=== PATIENT | male | born 1965 | race Caucasian/White ===

== ENCOUNTER 2020-09-23 21:24 | Emergency (ER) | payer OTHER, SELFPAY ==
--- NOTE | ~2020-09-23 | CT_ITS ---
EXAMINATION: CTA chest PE protocol DATE: 09/23/2020 22:54 INDICATION: Right-sided chest and rib pain that radiates to the abdomen TECHNIQUE: Computed tomography (CT) pulmonary angiogram of the chest was performed with 100 mL Omnipa que-350 intravenous contrast. Additional 3D reconstructions utilizing coronal maximum intensity proje ction (MIP) were performed. Automated exposure control and iterative reconstruction technique were em ployed. The dose-length product was 869.48 mGy-cm. COMPARISON: None FINDINGS: Excellent contrast opacification of the pulmonary arteries. There is mild streak artifact from dense contrast in the superior vena cava and right atrium. Mild scattered respiratory motion artifact which does not significantly limit evaluation. No pulmonary embolism. Normal variant azygos lobe and fissu re. Mosaic attenuation throughout the lungs consistent with atelectasis and scattered small regions o f subsegmental air trapping resulting from expiratory phase of imaging as evidenced by the concave co nfiguration of the posterior wall of the trachea. No septal line thickening to suggest pulmonary anne a. Diffuse bronchial wall thickening throughout both lungs which could be seen with bronchitis or lois ctive airway disease. No pneumonia or pleural effusion. 5 mm nodule along the right major fissure wit h 4 additional 2-4 mm nodules along the right minor fissure likely representing intrafissural lymph n odes. Heart size is normal. Thoracic aorta is normal in caliber with no dissection. Right-sided predo minant diffuse thyroid enlargement consistent with goiter. Mildly prominent but still normal-sized bi lateral hilar lymph nodes which are likely reactive. No pathologically enlarged thoracic lymphadenopa thy. Diffuse hepatic steatosis with focal sparing along the gallbladder fossa. Small region of hypode nsity wall thickening at the tip of the fundus of the gallbladder most consistent with focal adenomyo matosis. Mild thoracic spondylosis. IMPRESSION: 1. No pulmonary embolism. 2. Mosaic attenuation in both lungs most likely related to expiratory phase of imaging and scattered subsegmental air trapping which could be due to small airway disease 3. Diffuse bronchial wall thickening consistent with bronchitis or reactive airway disease. 4. Mild bilateral hilar lymphadenopathy as well as a few mildly prominent intrafissural lymph nodes o n the right which are likely reactive. 5. Diffuse hepatic steatosis. 6. Likely focal adenomyomatosis at the tip of the fundus of the gallbladder. 7. Goiter. Reviewed, dictated and finalized at location A. IMPRESSION: 1. No pulmonary embolism. 2. Mosaic attenuation in both lungs most likely related to expiratory phase of imaging and scattered subsegmental air trapping which could be due to small air way disease 3. Diffuse bronchial wall thickening consistent with bronchitis or reactive air way disease. 4. Mild bilateral hilar lymphadenopathy as well as a few mildly prominent intra fissural lymph nodes on the right which are likely reactive. 5. Diffuse hepatic steatosis. 6. Likely focal adenomyomatosis at the tip of the fundus of the gallbladder. 7. Goiter.
[2020-09-23 21:35] VITALS: BP 160/100; PULSE 84; RESP 24; TEMP 36.3; O2SAT 94
--- NOTE | 2020-09-23 21:49 | ECG_ITS ---
Measurements Intervals [place] Rate: 80 P: 45 DE: 145 QRS: 92 QRSD: 94 T: 63 QT: 356 QTc: 413 Interpretive Statements SINUS RHYTHM RIGHT AXIS DEVIATION INCOMPLETE RIGHT BUNDLE BRANCH BLOCK LOW QRS VOLTAGE IN PRECORDIAL LEADS BORDERLINE R WAVE PROGRESSION, ANTERIOR LEADS BORDERLINE ECG Electronically Signed On 09-24-2020 11:53:57 CDT by Beni De Guzman D.O.
[2020-09-23 22:08] LABS: Basophils Absolute Auto 0.1 K/mm3 (0.0-0.1); Basophils Percent Auto 0.6 % (0.2-1.2); Eosinophils Absolute Auto 0.9 K/mm3 (0-0.3); Eosinophils Percent Auto 7.7 % (0-4.4); Hematocrit 52.5 % (42.0-52.0); Immature Granulocyte Absolute 0.05 K/mm3 (0.00-0.031); Immature Granulocyte Percent A 0.4 % (0-0.5); Mean Corpuscular HGB Conc 34.3 g/dl (32-36); Mean Corpuscular Hemoglobin 30.8 pg (26-34); Mean Corpuscular Volume 89.7 fl (80-100); Mean Platelet Volume 8.9 fl (7.4-10.4); Monocytes Percent Auto 8.7 % (2.6-8.5); Neutrophils Absolute Auto 6.9 K/mm3 (1.3-6.7); Neutrophils Percent Auto 57.6 % (45.5-73.1); Platelet Count Result 216 k/mm3 (150-375); Red Blood Count 5.85 M/mm3 (4.6-6.20); Red Cell Distribution Width 14.6 % (11.5-14.5)
[2020-09-23 22:17] LABS: Prothrombin Time 14.1 Seconds (11.1-14.7)
--- NOTE | 2020-09-23 22:17 | ED.GENADULT ---
HPI - General Adult General Chief complaint: Chest Pain Stated complaint: heard a snap rt ribs Time Seen by Provider: 09/23/20 21:42 History of Present Illness HPI narrative: Patient 55-year-old gentleman who presents the emergency department chief complaint of right-sided rib pain. The patient reports that recently he had a cough and had pain in the right side of the ribs the patient stated it started to heal and then tonight after taking his evening shower getting back into his truck he turned and felt a snap in the right side of his chest. The patient states it hurts whenever he moves and when he takes a breath. Patient states EMS gave him some Toradol prior to arrival and states it helped a little bit on the patient denies dizziness.. Review of Systems Review of Systems: Narrative: A 10 system review of systems was completed on the patient and is negative except for what is stated in the HPI. Nursing and ancillary documentation was reviewed. PMFSH Comments Patient denies significant past medical history Social history patient is an over the road diesel truck technician Exam Narrative: Exam Narrative: GENERAL: Well-appearing, well-nourished, and in no acute distress. HEAD: Normocephalic, atraumatic. EYES: PERRLA and EOMI. ENT: Nares clear, no rhinorrhea or epistaxis. Mucous membranes moist. NECK: Supple. CHEST: Clear to auscultation. No respiratory distress. Chest wall is tender to palpation on the right side HEART: Regular rate and rhythm. No murmur heard. Normal peripheral pulses. ABDOMEN: Soft, nontender, nondistended, normal active bowel sounds. EXTREMITIES: Normal range of motion. No edema. SKIN: Warm, dry, no rash. NEURO: No focal deficits. Alert and oriented x3. PSYCH: Normal mood and affect. Course Vital Signs Vital signs: Vital Signs Temperature 36.3 C L 09/23/20 21:35 Pulse Rate 84 09/23/20 21:35 Respiratory Rate 24 H 09/23/20 21:35 Blood Pressure 160/100 H 09/23/20 21:35 Pulse Oximetry 94 09/23/20 21:35 Temperature 36.3 C L 09/23/20 21:35 Pulse Rate 84 09/23/20 23:11 Respiratory Rate 20 09/23/20 23:11 Blood Pressure 120/69 09/23/20 23:11 Pulse Oximetry 95 09/23/20 23:11 Medical Decision Making Vital Signs Vital Signs: Vital Signs Temperature 36.3 C L 09/23/20 21:35 Pulse Rate 84 09/23/20 21:35 Respiratory Rate 24 H 09/23/20 21:35 Blood Pressure 160/100 H 09/23/20 21:35 Pulse Oximetry 94 09/23/20 21:35 Temperature 36.3 C L 09/23/20 21:35 Pulse Rate 84 09/23/20 23:11 Respiratory Rate 20 09/23/20 23:11 Blood Pressure 120/69 09/23/20 23:11 Pulse Oximetry 95 09/23/20 23:11 Lab Data Result diagrams: 09/23/20 22:01 09/23/20 22:01 Labs: Lab Results 09/23/20 09/23/20 09/23/20 Range/Units 22:01 22:01 22:01 WBC 12.0 H (4.5-10.0) K/mm3 RBC 5.85 (4.6-6.20) M/mm3 Hgb 18.0 (14.0-18.0) g/dL Hct 52.5 H (42.0-52.0) % MCV 89.7 (80-100) fl MCH 30.8 (26-34) pg MCHC 34.3 (32-36) g/dl RDW 14.6 H (11.5-14.5) % Plt Count 216 (150-375) k/mm3 MPV 8.9 (7.4-10.4) fl Immature Gran % (Auto) 0.4 (0-0.5) % Neut % (Auto) 57.6 (45.5-73.1) % Lymph % (Auto) 25.0 (18.3-44.2) % Edwards % (Auto) 8.7 H (2.6-8.5) % Eos % (Auto) 7.7 H (0-4.4) % Baso % (Auto) 0.6 (0.2-1.2) % Lymph # (Auto) 3.00 (0.9-3.2) K/mm3 Edwards # (Auto) 1.0 H (0.1-0.6) K/mm3 Eos # (Auto) 0.9 H (0-0.3) K/mm3 Baso # (Auto) 0.1 (0.0-0.1) K/mm3 Abs Immat Gran (auto) 0.05 H (0.00-0.031) K/mm3 Absolute Neuts (auto) 6.9 H (1.3-6.7) K/mm3 Absolute Nucleated RBC 0.0 (0.0-0.012) K/mm3 Nucleated RBC % 0.0 (0.0-0.2) % PT 14.1 (11.1-14.7) Seconds INR 1.0 APTT 25.9 (22.3-36.8) SECONDS Sodium 140 (137-145) mmol/L Potassium 4.1 (3.4-5.0) mmol/L Chloride 108 H (98-107) mmol/L Carbon Dioxide 24 (22-30) mmol/L Anion Gap 8 (8-
[2020-09-23 22:18] LABS: Partial Thromboplastin Time 25.9 SECONDS (22.3-36.8)
[2020-09-23 22:19] LABS: Alanine Aminotransferase 28 U/L (4-50); Albumin Level 3.6 g/dL (3.5-5.1); Alkaline Phosphatase 63 U/L (38-126); Anion Gap 8 mmol/L (8-16); Aspartate Amino Transferase 28 U/L (17-59); Bilirubin,Total 0.5 mg/dL (0.2-1.3); Blood Urea Nitrogen 17 mg/dL (9-20); Calcium 9.3 mg/dL (8.4-10.2); Carbon Dioxide 24 mmol/L (22-30); Chloride 108 mmol/L (98-107); Estimated CRCL calculation 83 ml/min; Estimated Glomerular Filt Rate > 60; Glucose 146 mg/dL (75-110); Magnesium 1.9 mg/dL (1.6-2.3); Potassium 4.1 mmol/L (3.4-5.0); Sodium 140 mmol/L (137-145)
[2020-09-23 22:30] LABS: Troponin I < 0.012 ng/mL (0.000-0.034)
[2020-09-23] MEDS: MORPHINE SULFATE (*CRX) 4 MG/ML INJ IV PUSH (23:10)
[2020-09-23 23:11] VITALS: BP 120/69; PULSE 84; RESP 20; O2SAT 95
[2020-09-24 01:10] VITALS: BP 131/78; PULSE 65; RESP 20
== END 2020-09-24 01:13 | disposition home or self-care (01) ==
PROVIDERS: Emergency Provider Emergency Medicine
DX: R07.89 Other chest pain (principal)
CPT/HCPCS: 36415; 71275; 80053; 83735; 84484; 85025; 85610; 85730; 93005; 96374; 99284; J2270; Q9967